=== PATIENT | male | born 1985 | race Caucasian/White ===

== ENCOUNTER 2019-06-24 01:48 | Emergency (ER) | payer OTHER, MEDICARE ==
[~2019-06-24] VITALS: Ht 188 cm; Wt 108.9 kg
[2019-06-24] MEDS ORDERED: AMPDEX10 PO (02:34)
[2019-06-24] MEDS ORDERED: LAMO100 PO (02:34)
[2019-06-26 04:06] LABS: CHLAMYDIA TRACHOMATIS, NAA Negative (Negative); NEISSERIA GONORRHOEAE, NAA Positive (Negative)
== END 2019-06-24 04:00 | disposition home or self-care (01) ==
LOC: ER 01:48
PROVIDERS: Emergency Medicine
DX: A64 Unspecified sexually transmitted disease (principal); Z79.899 Other long term (current) drug therapy; A54.09 Other gonococcal infection of lower genitourinary tract
CPT/HCPCS: 87491; 87591; 96372; 99283-25; A9270-GY; J0696